=== PATIENT | female | born 1945 | race Caucasian/White ===

== ENCOUNTER → 2022-08-16 | Outpatient (CLI) | payer MEDICARE ==
[~2022-08-16] MED LIST: ASPIR 8181 MG PO; CALCIUM 600 +1 EAC6 PO; CO Q-10200 MG PO; FISH OIL 1,0001 EAC2 PO; LOVASTATIN40 MG PO; MULTI-VITAMIN1 EACH PO; NIACIN1000 MG PO; REGADENOSON 0.4 MG/5 ML SYR IV ONE; VITAMIN D2000 UNI1 PO
== END ==
LOC: NM 08:24
PROVIDERS: ATTEND Internal Medicine
DX: R07.9 Chest pain, unspecified (principal)
CPT/HCPCS: 78452; 93017; A9502; J2785

== ENCOUNTER 2024-05-16 10:57 | Outpatient (RCR) | payer MEDICARE ==
[~2024-05-16 10:57] MED LIST changes: +HYDROCHLOROTHIA25 MG PO; +OMEPRAZOLE40 MG PO; -REGADENOSON 0.4 MG/5 ML SYR IV ONE
== END 2024-05-17 ==
LOC: PT 10:57
PROVIDERS: ATTEND Specialist
DX: R26.89 Other abnormalities of gait and mobility (principal)

== ENCOUNTER 2024-06-13 11:00 | Outpatient (RCR) | payer MEDICARE | END 2024-06-14 | LOC: PT 11:00 | PROVIDERS: ATTEND Specialist | DX: R26.89 Other abnormalities of gait and mobility (principal) ==

== ENCOUNTER 2024-08-13 10:00 | Outpatient (RCR) | payer MEDICARE | END 2024-08-14 | LOC: PT 10:00 | PROVIDERS: ATTEND Specialist | DX: R53.1 Weakness (principal); R26.81 Unsteadiness on feet ==

== ENCOUNTER 2024-09-19 08:00 | Outpatient (RCR) | payer MEDICARE | END 2024-10-14 | LOC: PT 08:00 | PROVIDERS: ATTEND Specialist | DX: R53.1 Weakness (principal); R53.81 Other malaise ==

== ENCOUNTER → 2024-12-24 | Outpatient (REF) | payer MEDICARE ==
[~2024-12-24] MED LIST changes: +AMLODIPINE BES2.5 MG; +BENZONATATE100 MG PO; +EVISTA60 MG PO; +LEXAPRO10 MG PO; +MELOXICAM7.5 MG PO; +MEMANTINE HCL10 MG
== END ==
LOC: DX 08:45
PROVIDERS: ATTEND Internal Medicine Gastroenterology
DX: R05.3 Chronic cough (principal); R12 Heartburn; I10 Essential (primary) hypertension; Z68.21 Body mass index [BMI] 21.0-21.9, adult; Z87.891 Personal history of nicotine dependence
CPT/HCPCS: 74230

== ENCOUNTER → 2024-12-26 | Day surgery (SDC) | payer MEDICARE ==
[2024-12-24 09:32] LABS: BASOPHILS % 0.3 % (0.0-1.0); EOSINOPHILS % 4.2 % (0.0-6.0); LYMPHOCYTES % 27.4 % (18.0-39.1); MONOCYTES % 8.9 % (4.4-11.3); NEUTROPHILS % 58.9 % (38.7-80.0); RED CELL DISTRIBUTION WIDTH 14.1 % (11.7-14.4)
[~2024-12-26] MED LIST changes: +FENTANYL CITRATE/PF 100MCG/2 ML INJ ONE; +LIDOCAINE HCL 2% LOCAL INJ 5 ML SDV VIAL INJ ONE; +PROPOFOL IV EMULSION 10 MG/ML 20 ML VIAL ONE
[2024-12-26] MEDS: LACTATED RINGER'S 1,000 ML ONE (07:17)
[2024-12-26 07:32] VITALS: TEMP 98.3
[2024-12-26 08:00] VITALS: BP 126/65; PULSE 64; RESP 18; O2SAT 99
== END | disposition home or self-care (01) ==
LOC: OR 05:57
PROVIDERS: ATTEND Internal Medicine Gastroenterology
DX: K29.50 Unspecified chronic gastritis without bleeding (principal); K44.9 Diaphragmatic hernia without obstruction or gangrene; K21.9 Gastro-esophageal reflux disease without esophagitis; R05.3 Chronic cough; I10 Essential (primary) hypertension; E78.5 Hyperlipidemia, unspecified; M06.9 Rheumatoid arthritis, unspecified; M19.90 Unspecified osteoarthritis, unspecified site; F01.50 Vascular dementia, unspecified severity, without behavioral disturbance, psychotic disturbance, mood disturbance, and anxiety; H91.90 Unspecified hearing loss, unspecified ear; Z88.6 Allergy status to analgesic agent; Z88.4 Allergy status to anesthetic agent; Z01.810 Encounter for preprocedural cardiovascular examination; Z01.812 Encounter for preprocedural laboratory examination; Z79.82 Long term (current) use of aspirin; Z79.1 Long term (current) use of non-steroidal anti-inflammatories (NSAID); Z79.899 Other long term (current) drug therapy; Z68.21 Body mass index [BMI] 21.0-21.9, adult; Z86.73 Personal history of transient ischemic attack (TIA), and cerebral infarction without residual deficits; Z87.891 Personal history of nicotine dependence
CPT/HCPCS: 36415; 43239; 85025; 88305; 93005; J2003; J2704; J3010; J7121